=== PATIENT | female | born 1985 | race Native Hawaiian/Other Pacific Islander ===

== ENCOUNTER 2020-12-14 04:21 | Day surgery (SDC) | payer OTHER ==
[2020-12-14] MEDS ORDERED: PROPOFOL 20 ML ONE (07:16)
[2020-12-14 08:07] LABS: EPI CELLS >36 /uL (0-25.1); HYALINE CASTS 3 /uL (0-3.1); PH,URINE 5.5 (5.0-8.0); URINE APPEARANCE CLEAR; URINE BACTERIA 172 /uL (0-1359); URINE BILIRUBIN NEGATIVE (NEGATIVE); URINE COLOR YELLOW; URINE GLUCOSE (UA) NEGATIVE (NEGATIVE); URINE KETONE NEGATIVE (NEGATIVE); URINE LEUK ESTERASE NEGATIVE (NEGATIVE); URINE NITRITE NEGATIVE (NEGATIVE); URINE PROTEIN 2+ (NEGATIVE); URINE RBC 55 /uL (0-23.9); URINE UROBILINOGEN 0.2 mg/dL (0.2-1.0); URINE WBC 8 /uL (0-25.8)
[2020-12-14] MEDS ORDERED: MIDAZOLAM HCL 2 MG/2 ML SINGLE DOSE VIAL ONE (08:23)
[2020-12-14] MEDS ORDERED: LIDOCAINE HCL/PF 2% SDV 5ML VIAL ONE (08:31)
[2020-12-14] MEDS ORDERED: KETOROLAC TROMETHAMINE 30 MG/1 ML VIAL ONE (08:34)
[2020-12-14 09:14] VITALS: PULSE 72; TEMP 97.2
[2020-12-14] MEDS ORDERED: LACTATED RINGERS SOLUTION 1,000 ML IV SCH (09:15)
[2020-12-14] MEDS ORDERED: ACETAMINOPHEN 325 MG TABLET (FP) PO PRN (09:15)
[2020-12-14] MEDS ORDERED: oxyCODONE HCL 5 MG TABLET PO PRN (09:15)
[2020-12-14 10:32] VITALS: BP 133/87
== END 2020-12-14 10:40 | disposition home or self-care (01) ==
LOC: JASU-SURG 04:21
PROVIDERS: ATTEND Urology
PROC: 0TF4XZZ Fragmentation in Left Kidney Pelvis, External Approach (ICD-10-PCS; principal; 2020-12-14 07:30)
DX: N20.0 Calculus of kidney (principal)
CPT/HCPCS: 81003; 84703

== ENCOUNTER 2021-03-08 04:13 | Day surgery (SDC) | payer OTHER ==
[2021-03-04 15:31] VITALS: BMI 31.2
[2021-03-08] MEDS ORDERED: KETOROLAC TROMETHAMINE 30 MG/1 ML VIAL ONE (07:13)
[2021-03-08] MEDS ORDERED: PROPOFOL 20 ML ONE (07:13)
[2021-03-08] MEDS ORDERED: MIDAZOLAM HCL 2 MG/2 ML SINGLE DOSE VIAL ONE (07:14)
[2021-03-08] MEDS ORDERED: LIDOCAINE HCL/PF 2% SDV 5ML VIAL ONE (07:14)
[2021-03-08] MEDS ORDERED: EPHEDRINE SULFATE/0.9% NACL/PF 50 MG/10 ML SYRINGE NR ONE (07:16)
[2021-03-08] MEDS ORDERED: SUCCINYLCHOLINE CHLORIDE 200 MG/10 ML SYRINGE ONE (07:16)
[2021-03-08 07:21] VITALS: BP 150/86; PULSE 95; TEMP 97.8
== END 2021-03-08 08:31 | disposition home or self-care (01) ==
LOC: JASU-SURG 04:13
PROVIDERS: ATTEND Urology
DX: Z53.8 Procedure and treatment not carried out for other reasons (principal)
CPT/HCPCS: 36415; 81025; 84702

== ENCOUNTER 2021-05-17 05:16 | Day surgery (SDC) | payer OTHER ==
[2021-05-13 14:57] VITALS: BMI 32.5
[2021-05-17] MEDS ORDERED: EPHEDRINE SULFATE/0.9% NACL/PF 50 MG/10 ML SYRINGE NR ONE (06:52)
[2021-05-17] MEDS ORDERED: PROPOFOL 20 ML ONE ×2 (06:53)
[2021-05-17] MEDS ORDERED: MIDAZOLAM HCL 2 MG/2 ML SINGLE DOSE VIAL ONE (06:53)
[2021-05-17] MEDS ORDERED: KETAMINE HCL 200 MG/20 ML VIAL ONE (06:53)
[2021-05-17] MEDS ORDERED: KETOROLAC TROMETHAMINE 30 MG/1 ML VIAL ONE ×2 (06:56→07:48)
[2021-05-17] MEDS ORDERED: LIDOCAINE HCL/PF 2% SDV 5ML VIAL ONE (06:56)
[2021-05-17 09:29] VITALS: TEMP 97.8
[2021-05-17 11:18] VITALS: BP 117/88; PULSE 62
== END 2021-05-17 11:25 | disposition home or self-care (01) ==
LOC: JASU-SURG 05:16
PROVIDERS: ATTEND Urology
PROC: 0TF3XZZ Fragmentation in Right Kidney Pelvis, External Approach (ICD-10-PCS; principal; 2021-05-17 07:30)
DX: N20.0 Calculus of kidney (principal)
CPT/HCPCS: 81025